=== PATIENT | female | born 1950 | race Caucasian/White ===

== ENCOUNTER 2016-12-15 22:52 | Observation (INO) | payer OTHER ==
[~2016-12-15] VITALS: Ht 165.1 cm; Wt 98.2 kg
[~2016-12-15 22:52] MED LIST: AMLODIPINE BESY10 MG PO; GEMFIBROZIL600 MG PO; LOSARTAN-HCTZ1 EAC1 PO; PAROXETINE HCL20 MG PO; TESSALON PERLE100 MG PO; TESSALON200 MG PO; VISKEN10 MG PO
[2016-12-15 23:29] LABS: HEMATOCRIT 44.5 % (36.0-46.0); MCH 30.1 PG (29.0-34.0); MCHC 33.5 G/DL (30.0-36.0); MCV 89.9 FL (83-99); MEAN PLAT.VOLUME 11.2 uM^3 (9.5-12.4); PLATELET COUNT 340 K/uL (156-360); RBC DIS.WIDTH-CV 14.9 % (11.8-14.6); RBC DIS.WIDTH-SD 48.2 % (39-53); RED BLOOD COUNT 4.95 M/uL (3.80-5.20); WHITE BLOOD COUNT 16.3 K/uL (4.1-10.2)
[2016-12-15 23:36] LABS: CHLORIDE 101 mEq/L (99-109)
[2016-12-15 23:37] LABS: POTASSIUM 3.5 mEq/L (3.7-5.4); PROTHROMBIN TIME 10.2 (9.2-11.2); PTT 22.6 (25-32); SODIUM 141 mEq/L (136-147)
[2016-12-15 23:38] LABS: GLUCOSE 245 mg/dL (70-99)
[2016-12-15 23:40] LABS: ANION GAP 13 MEQ/L (2-14)
[2016-12-15 23:42] LABS: GFR ESTIMATE (CALCULATED) 47 mL/min/
[2016-12-15 23:43] LABS: UREA NITROGEN (BUN) 15 mg/dL (9-23)
[2016-12-15 23:48] LABS: TROP-I INTERPRETATION NEGATIVE; TROPONIN-I < 0.01 ng/mL (0.0-0.30)
[2016-12-16] MEDS ORDERED: AMLODIPINE BESYL5 MG PO ×2 (00:23→14:44)
[2016-12-16] MEDS ORDERED: IBUPROFEN800 MG PO (00:24)
[2016-12-16] MEDS ORDERED: AMOXICILLIN500 MG PO (00:24)
[2016-12-16] MEDS ORDERED: ONE-A-DAY ESSE1 EAC1 PO (00:24)
[2016-12-16] MEDS ORDERED: METOPROLOL SUCC50 MG PO (00:25)
[2016-12-16] MEDS ORDERED: ATORVASTATIN CA20 MG PO (00:25)
[2016-12-16 02:23] VITALS: BP 145/65
[2016-12-16 05:24] VITALS: BP 139/63
[2016-12-16 07:18] LABS: Estimated Average Glucose 151 mg/dL (70-123); HEMOGLOBIN A1c (GLYCOHEMOGLOB) 6.9 % HGB (Below 5.7)
[2016-12-16 08:00] VITALS: BP 140/67
[2016-12-16 11:35] VITALS: BP 154/72
[2016-12-16] MEDS ORDERED: CLEOCIN150 MG PO (14:44)
[2016-12-16] MEDS ORDERED: PREDNISONE10 MG PO (14:45)
== END 2016-12-16 16:21 | disposition home or self-care (01) ==
LOC: EME 22:52 → EDOF 12-16 00:39 → 5WEST 12-16 01:57
PROVIDERS: Emergency Medicine; Internal Medicine; Physician Assistant Medical
DX: R55 Syncope and collapse (principal); T36.0X5A Adverse effect of penicillins, initial encounter; R00.1 Bradycardia, unspecified; N17.9 Acute kidney failure, unspecified; R73.03 Prediabetes; D72.829 Elevated white blood cell count, unspecified; I10 Essential (primary) hypertension; Z98.818 Other dental procedure status; E78.5 Hyperlipidemia, unspecified; Z87.891 Personal history of nicotine dependence; Z80.3 Family history of malignant neoplasm of breast; Z82.0 Family history of epilepsy and other diseases of the nervous system; Z91.018 Allergy to other foods
CPT/HCPCS: 71020; 80048; 82948; 83036; 83880; 84484; 85027; 85610; 85730; 93005; 99281; 99285; G0378; J1100; J1200; J1815; J7030; S0028